=== PATIENT | female | born 2000 ===

== ENCOUNTER 2025-03-21 04:52 | Emergency (ER) | payer MEDICAID, OTHER ==
[~2025-03-21] VITALS: Ht 160 cm; Wt 70.4 kg
--- NOTE | 2025-03-21 05:26 | ECG ---
[facility] Test Date: 2025-03-21 Test Time: 05:18:21 Pat Name: GIFTY RUBIN Department: Room: Gender: F Display Associate: : 2000 Requested By: JAGDEEP EMERSON Order Number: [id number] Reading MD: Filiberto Au Measurements Intervals [place] Rate: 71 P: 81 [place]: 139 QRS: 78 QRSD: 87 T: 51 QT: 381 QTc: 414 Interpretive Statements Sinus rhythm Electronically Signed On 03-21-2025 18:26:18 PDT by Filiberto Au Please click the below link to view image of tracing.
--- NOTE | 2025-03-21 05:55 | ED.PDOC ---
History of Present Illness HPI Comments 24-year-old female who presents with chief complaint of, RUQ abdominal pain, with the associated nausea, vomiting, and chills. Versus on sudden, unprovoked, atraumatic onset of symptoms at around 0000, this morning. Attempted to manage symptoms with omeprazole, Gas-X, and baking soda to no relief or improvement. Pain, currently, is a 3-4/10 in severity but worsens whenever laying down. Chills also reported to only occur whenever vomiting. Only significant history of GERD and hypertension. Is any recent travel, sick contact, or injuries. Denies having any bloody or bilious vomitus, diarrhea, constipation, urinary symptoms, fever, or further associated symptoms. REVIEW OF SYSTEMS: General: No fever, no chills, or fatigue HEENT: No sore throat, no earache, no congestion, no neck pain. Cardiac: No chest pain. No palpitations. Lungs: No shortness of breath, no cough. GI: Abdominal pain, nausea, vomiting, no diarrhea, no constipation : No dysuria, frequency, or urgency. No hematuria. Musculoskeletal: No joint pain , no joint swelling, no extremity edema. Skin: No rash, no itching. Neuro: No headache, no dizziness, no weakness PHYSICAL EXAM: General: Awake, alert and oriented. No acute distress. Skin: Skin in warm, dry and intact. Appropriate color for ethnicity. HEENT: The head is normocephalic and atraumatic. Conjunctivae are clear without exudates or hemorrhage. Sclera is non-icteric. EOM are intact. No signs of nystagmus. Eyelids are normal in appearance without swelling or lesions. Oral m ucosa is pink and moist Neck: The neck is supple with normal range of motion. No JVD. Cardiac: Heart rate and rhythm are normal. No murmurs, gallops, or rubs are auscultated. Respiratory: No signs of respiratory distress. Lung sounds are clear in all lob es bilaterally without rales, rhonchi, or wheezes. Abdominal: RUQ tenderness. Otherwise, remaining abdomen is soft, non-tender without distention, guarding or rigidity. Extremities: Upper and lower extremities are atraumatic in appearance without deformity or edema. Neurological: The patient is awake, alert and oriented to person, place, and time with normal speech. Speech is clear. There is no facial asymmetry. Chief Complaint: Abdominal Pain Time Seen by MD: 05:20 Reviewed Notes: Nurses Notes, Medications, Allergies Allergies: Coded Allergies: No Known Drug Allergy (Verified Allergy, Unknown, 03/21/25) Information Source: Patient Mode of Arrival: Ambulatory Severity: Moderate Timing: Hours Duration: Since onset Prehospital treatment: None Past Medical History PAST MEDICAL HISTORY: GERD, HTN Surgical History: Denies all surgeries PROPERTY MANAGEMENT INTERN History: Denies all PROPERTY MANAGEMENT INTERN Hx Family History Family History: Unknown Social History Smoker: Non-Smoker Alcohol: Denies ETOH Use Drugs: Denies Drug Use Lives In: Home Was a procedure done? Was a procedure done?: No Differential Dx Considerations may include: Differential diagnoses considered include: Abdominal aortic aneurysm, ID, esophageal rupture, intestinal obstruction, mesenteric ischemia, perforated viscus or solid organ rupture, CHF with hepatomegaly, pneumonia, abscess, appendicitis, biliary disease, diverticulitis, gastritis, gastroenteritis, hepatitis, hernia, inflammatory bowel disease, pancreatitis, peptic ulcer disease, urinary tract infection, ureteral colic, constipation, GERD, irritable syndrome, abdominal wall pain, nonspecific abdominal pain, herpes zoster, nephrolithiasis. X-Ray, Labs, Meds, VS Vital Signs Date Time Temp Pulse Resp B/P (MAP) Pulse Ox O2 Delivery O2 Flow Rate FiO2 03/21/25 08:17 97.9 03/21/25 05:18 71 03/21/25 04:57 97.6 87 16 133/83 99 97.6 Lab Test 03/21/25 05:49 Range/Units White Blood Count 14.1 H 4.4-10.8 10^3/uL Red Blood Count 4.49 4.0-5.20 10^6/uL Hemoglobin 13.0 12.2-16.2 g/dL Hematocrit 38.0 36.0-46.0 % Mean Corpuscular Volume 84.7 80.0-100.0 fL Mean Corpuscular Hemoglobin 29.0 28.0-32.0 pg Mean Corpuscular Hemoglobin Concent 34.2 32.0-36.0 g/dL Red Cell Distribution Width 14.8 H 11.8-14.3 % Platelet Count 308 140-450 10^3/uL Mean Platelet Volume 8.5 6.9-10.8 fL Neutrophils (%) (Auto) 83.7 H 37.0-80.0 % Lymphocytes (%) (Auto) 11.9 10.0-50.0 % Monocytes (%) (Auto) 4.1 0.0-12.0 % Eosinophils (%) (Auto) 0.1 0.0-7.0 % Basophils (%) (Auto) 0.2 0.0-2.0 % Neutrophils # (Auto) 11.8 H 1.6-8.6 10 ^3/uL Lymphocytes # (Auto) 1.7 0.4-5.4 10 ^3/uL Monocytes # (Auto) 0.6 0-1.3 10 ^3/uL Eosinophils # (Auto) 0 0-0.8 10 ^3/uL Basophils # (Auto) 0 0-0.2 10 ^3/uL Nucleated Red Blood Cells 0.2 % Sodium Level 139 136-145 mmol/L Potassium Level 3.8 3.5-5.1 mmol/L Chloride Level 104 98-107 mmol/L Carbon Dioxide Level 24 20-31 mmol/L Anion Gap 11 5-15 Blood Urea Nitrogen 7 L 9-23 mg/dL Creatinine 0.79 0.550-1.02 mg/dL Glomerular Filtration Rate Calc 106 >90 mL/min BUN/Creatinine Ratio 8.9 L 10.0-20.0 Serum Glucose 120 H 74-106 mg/dL Calcium Level 9.5 8.7-10.4 mg/dL Total Bilirubin 0.4 0.2-1.0 mg/dL Aspartate Amino Transferase (AST) 19 13-40 U/L Alanine Aminotransferase (ALT) < 9 7-40 U/L Alkaline Phosphatase 70 46-116 U/L Total Protein 7.8 5.7-8.2 g/dL Albumin 5.1 H 3.2-4.8 g/dL Lipase 32 12-53 U/L Current Medications Medications (Trade) Dose Ordered Sig/Marcial Route Start Time Stop Time Status Last Admin Ondansetron HCl (Zofran Po) 4 mg ONCE ONCE PO 03/21/25 06:00 03/21/25 06:01 NM 03/21/25 06:00 Acetaminophen (Tylenol Tablet) 650 mg ONCE ONCE PO 03/21/25 06:00 03/21/25 06:01 DC 03/21/25 08:17 Ketorolac Tromethamine (Toradol Injection) 30 mg ONCE ONCE IM 03/21/25 06:00 03/21/25 06:01 DC 03/21/25 08:18 Time of 1ST Reevaluation: 05:50 Reevaluation 1ST: Unchanged Patient Education/Counseling: Need For Follow Up Family Education/Counseling: No Family Present Change of Shift?: Yes (Signed out to Dr. Alarcon at 0600) SEPSIS Sepsis Screen Date sepsis recognized/suspect: Mar 21, 2025 Time Sepsis recognized/suspect: 500 Recent Procedure: No On Antibiotic Therapy: No Respiratory Rate >20: No Heart Rate >90: No Temp<36 C (96.8 F) or >38.3 C: No SBP <90 or MAP <65 mmHG: No New Acute Mental Status Change: No Is the patient on CPAP, BIPAP,: No Physician Orders Gallbladder (03/21/25 07:02) Vital Signs Date Time Temp Pulse Resp B/P (MAP) Pulse Ox O2 Delivery O2 Flow Rate FiO2 03/21/25 08:17 97.9 03/21/25 05:18 71 03/21/25 04:57 97.6 87 16 133/83 99 97.6 Laboratory Tests Test 03/21/25 05:49 White Blood Count 14.1 10^3/uL (4.4-10.8) H Medications Medications Dose Ordered Sig/Marcial Route Start Time Stop Time Status Last Admin Dose Admin Acetaminophen 650 mg ONCE ONCE PO 03/21/25 06:00 03/21/25 06:01 DC 03/21/25 08:17 Ketorolac Tromethamine 30 mg ONCE ONCE IM 03/21/25 06:00 03/21/25 06:01 DC 03/21/25 08:18 Ondansetron HCl 4 mg ONCE ONCE PO 03/21/25 06:00 03/21/25 06:01 DC 03/21/25 06:00 Departure 1 Departure Time of Disposition: 08:27 (Patient presented with abdominal pain that was concerning for possible appendicits, gastritis, cholecystitis, colitis, gastroenteritis, or orther possible surgical emergency. Data: 1. I ordered and reviewed the result of at least 3 labs including a CBC, BMP, and Urinalysis. 2. I independently interpreted the following tests: Right upper quadrant ultrasound is concerning for gallstones but not acute cholecystitis.Risk:This patient has a high risk of morbidity due to further diagnostic testing or treatment and may suffer from an acute abdominal process disorder. Fortunately workup reveals gallstones and likely acid reflux and patient can be safely discharged to home with outpatient follow up.) Impression: Primary Impression: Cholelithiases Qualified Codes: K80.20 - Calculus of gallbladder without cholecystitis without obstruction Additional Impressions: GERD (gastroesophageal reflux disease) Qualified Codes: K21.9 - Gastro-esophageal reflux disease without esophagitis Abdominal pain Qualified Codes: R10.84 - Generalized abdominal pain Disposition: 01 HOME / SELF CARE / HOMELESS Condition: Stable Referrals: MUSTAPHA SMART MD Additional Instructions: You have gallstones and that may be causing your pain. You should avoid fatty foods as this can exacerbate the pain. You can take over the counter omeprazole 20mg daily for two weeks as this may help with the acid. For pain you can take the followinam: Ibuprofen 400mg with food Noon: Acetaminophen 1000mg 4pm: Ibuprofen 400mg with food 8pm: Acetaminophen 1000mg You were referred to a fitness management director. Please call for an appointment. You should follow up with your regular doctor within one week to ensure you are doing better. If your symptoms worsen or you have any other concerns then please return to the ER. Discharged With: Self Critical Care Note Critical Care Time?: No Stability Stability form required: No Heart Score Heart Score: Heart Score Response (Comments) Value History N/A 0 EKG N/A 0 Age N/A 0 Risk Factors N/A 0 Troponin N/A 0 Total 0 I personally scribed for JAGDEEP EMERSON MD ([employer]) on 03/21/25 at 05:55. Electronically submitted by Alfredo Cruz ([email or web address]). I personally scribed for JAGDEEP EMERSON MD ([employer]) on 03/21/25 at 05:56. Electronically submitted by Alfredo Cruz ([email or web address]). JAGDEEP EMERSON MD Mar 21, 2025 05:55 MARIA DOLORES ALARCON MD Mar 21, 2025 08:28
[2025-03-21] MEDS: ONDANSETRON ODT 4 MG TAB PO ONE (06:00)
[2025-03-21 06:12] LABS: Hematocrit 38.0 % (36.0-46.0); Hemoglobin 13.0 g/dL (12.2-16.2); Mean Corpuscular Hemoglobin 29.0 pg (28.0-32.0); Mean Corpuscular Volume 84.7 fL (80.0-100.0); Nucleated Red Blood Cells % 0.2 %
[2025-03-21 06:21] LABS: Alkaline Phosphatase 70 U/L (46-116); Anion Gap 11 (5-15); BUN/Creatinine Ratio 8.9 (10.0-20.0); Bilirubin, Total 0.4 mg/dL (0.2-1.0); Calcium 9.5 mg/dL (8.7-10.4); Carbon Dioxide 24 mmol/L (20-31); Chloride 104 mmol/L (98-107); Potassium 3.8 mmol/L (3.5-5.1); Sodium 139 mmol/L (136-145); Total Protein 7.8 g/dL (5.7-8.2)
[2025-03-21 06:33] LABS: Alanine Aminotransferase < 9 U/L (7-40); Albumin 5.1 g/dL (3.2-4.8); Blood Urea Nitrogen 7 mg/dL (9-23); Glucose 120 mg/dL (74-106)
[2025-03-21 07:07] LABS: Lipase 32 U/L (12-53)
--- NOTE | 2025-03-21 07:42 | DVH ---
EXAM: US GALLBLADDER INDICATION: ruq pain TECHNIQUE: Multiple real-time sonographic images were obtained of the right upper quadrant. COMPARISON: None FINDINGS: The liver demonstrates increased echotexture without focal mass lesions. There is hepatope tony color doppler flow in the main portal vein. There is no intrahepatic biliary ductal dilatation. There are multiple gallstones. Gallbladder wall is normal in thickness measuring 0.2 cm. Negative son ographic lind's sign. No pericholecystic free fluid. The common bile duct measures 0.5 cm. The right kidney measures 10.1 cm. The right kidney is normal in contour, size, and shape. The echo genicity is normal. There is no hydronephrosis. The pancreas is not well visualized due to overlying bowel gas. Visualized portions of the aorta and inferior vena cava are unremarkable. No evidence of ascites. IMPRESSION: 1. Gallstones. No findings to suggest acute cholecystitis.
[2025-03-21 08:15] VITALS: BP 126/80; PULSE 68; RESP 12; O2SAT 96
[2025-03-21 08:17] VITALS: TEMP 97.9
[2025-03-21] MEDS: ACETAMINOPHEN 325 MG TAB PO ONE (08:17)
[2025-03-21] MEDS: KETOROLAC TROMETH 30 MG/ML 1ML VIAL IM ONE (08:18)
== END 2025-03-21 08:43 | disposition home or self-care (01) ==
LOC: ER 04:52
DX: K80.20 Calculus of gallbladder without cholecystitis without obstruction (principal); K21.9 Gastro-esophageal reflux disease without esophagitis; I10 Essential (primary) hypertension
CPT/HCPCS: 36415; 76705; 80053; 83690; 85025; 93005; 96372; 99285; J1885; Q0162